=== PATIENT | female | born 1975 | race Caucasian/White ===

== ENCOUNTER 2017-07-04 20:07 | Emergency (ER) | payer OTHER ==
[~2017-07-04] VITALS: Ht 157.5 cm; Wt 75.0 kg
[2017-07-04 20:55] LABS: MCH 29.3 PG (29.0-34.0); MCV 83.7 FL (83-99); MEAN PLAT.VOLUME 10.9 uM^3 (9.5-12.4); PLATELET COUNT 201 K/uL (156-360); RBC DIS.WIDTH-CV 12.4 % (11.8-14.6); RBC DIS.WIDTH-SD 37.5 % (39-53); RED BLOOD COUNT 5.02 M/uL (3.80-5.20); WHITE BLOOD COUNT 5.7 K/uL (4.1-10.2)
[2017-07-04 21:08] LABS: CHLORIDE 106 mEq/L (99-109); POTASSIUM 3.6 mEq/L (3.7-5.4); SODIUM 142 mEq/L (136-147)
[2017-07-04 21:10] LABS: GLUCOSE 101 mg/dL (70-99)
[2017-07-04 21:11] LABS: ANION GAP 11 MEQ/L (2-14)
[2017-07-04 21:14] LABS: GFR ESTIMATE (CALCULATED) > 59 mL/min/
[2017-07-04 21:15] LABS: UREA NITROGEN (BUN) 9 mg/dL (9-23)
[2017-07-04 21:23] LABS: TROP-I INTERPRETATION NEGATIVE; TROPONIN-I < 0.01 ng/mL (0.0-0.30)
[2017-07-04 22:58] VITALS: BP 136/85
== END 2017-07-04 22:58 | disposition home or self-care (01) ==
LOC: EME 20:07
DX: G43.909 Migraine, unspecified, not intractable, without status migrainosus (principal); R07.89 Other chest pain; I10 Essential (primary) hypertension
CPT/HCPCS: 71020; 80048; 84484; 85027; 93005; 99281; 99284; J1200; J1885; J2405; J2765; J7030